=== PATIENT | male | born 1955 | race Caucasian/White ===

== ENCOUNTER 2019-11-02 15:42 | Inpatient (IN) | payer OTHER ==
[~2019-11-02] VITALS: Ht 172.7 cm; Wt 47.0 kg
[2019-11-02 15:49] VITALS: BP 77/30
[2019-11-02] MEDS ORDERED: MORPHINE SULFATE 10 MG/ML VIAL. IM ONE (16:15)
[2019-11-02] MEDS ORDERED: KETOROLAC 30 MG/ML VIAL. IVP ONE (16:30)
[2019-11-02] MEDS ORDERED: oxyCODONE ORAL SOLUTION 5 MG/5 ML SOLUTION PEG PRN (16:30)
[2019-11-02] MEDS: IV NORMAL SALINE 1000ML BAG 1,000 ML IV SCH (16:50)
[2019-11-02] MEDS: fentaNYL PF VIAL 100 MCG/2 ML VIAL IVP PRN ×2 (16:59→22:41)
[2019-11-02 19:00] VITALS: BP 90/52
[2019-11-02] MEDS: GABAPENTIN 250 MG/5 ML ORAL SOLUTION. PEG SCH (21:00)
[2019-11-03] MEDS: METHADONE 5 MG/5 ML SOLUTION. PEG PRN ×2 (00:33→07:54)
[2019-11-03] MEDS: IV NORMAL SALINE 1000ML BAG 1,000 ML IV SCH ×3 (03:02→23:28)
[2019-11-03] MEDS: fentaNYL PF VIAL 100 MCG/2 ML VIAL IVP PRN ×5 (06:00→20:51)
[2019-11-03] MEDS: GABAPENTIN 250 MG/5 ML ORAL SOLUTION. PEG SCH ×3 (07:54→20:51)
[2019-11-03 08:00] VITALS: BP 90/52
--- NOTE | 2019-11-03 13:25 | NUR ---
SW following. Spoke with RN and reviewed chart. Pt from home with son and hospice from [facility], , (fax). Pt currently admitted GIP for pain management. Pt has a port-a-cath and PEG. MARINA coordinated care with fig caprifier Vilma and hospice MARINA Plasencia. Pt wants LTC placement. MARINA contacted [facility] to request he reach out to pt's dtr Analisa ([phone]) to file a Medicaid application. Spoke with pt and pt's dtr who are agreeable to this SW attempting LTC placement Medicaid pending with hospice upon discharge. Pt can return home when stable if placement has not been found. MARINA phoned and faxed initial referral to [facility], , (fax) per approval from pt and pt's dtr. MARINA to continue following. Addendum: 11/03/19 at 1735 by ADARSH GRAY Patient Choice of Vendor Form completed.
--- NOTE | 2019-11-03 15:05 | NUR ---
Wound Care Alba RN stated pt is on comfort care only so no wound care needed
[2019-11-03] MEDS ORDERED: POLYETHYLENE GLYCOL 3350 17 GM PACKET. PEG PRN (17:15)
--- NOTE | 2019-11-03 19:06 | HP ---
ADMIT DATE: 11/02/2019 CHIEF COMPLAINT: Oral cancer. HISTORY OF PRESENT ILLNESS: The patient is a pleasant 64-year-old male who has oral cancer. He has a very large hole in his left lower jaw. He also has a PEG tube that has been plugging off and sometimes even almost falling out. He also has a right chest wall Port-A-Cath. Basically, he is failing to thrive at home, but family is having problems managing him. They would like him to go to a custodial, but the pain management has been a huge issue. We have admitted the patient and we are going to try to arrange custodial with hospice. PAST MEDICAL HISTORY: Oral cancer. ALLERGIES: None. FAMILY HISTORY: Diabetes. 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 Does not drink, smoke or take drugs currently, although I think he used to smoke. MEDICATIONS: Reviewed, please refer to the MRAD. REVIEW OF SYSTEMS: Unable to obtain. The patient really cannot talk. PHYSICAL EXAMINATION: VITALS: Within normal limits and are stable. GENERAL: No apparent distress. Alert and oriented. HEENT: He has a very large hole in the left lower jaw. It is about 10 x 8 cm across. We can see some hardware, appears to be titanium in the jaw. I think he probably had a jaw reconstruction. NECK: Supple, no JVD, no thyromegaly was noted. LUNGS: Clear to auscultation in all lung dao without rhonchi or wheezing. HEART: RRR, S1, S2 present. Peripheral pulses intact, no obvious murmurs were noted. GASTROINTESTINAL: His abdomen is very thin. He does have a PEG tube in place. It is very loose in the whole. We redressed it. CHEST: He has got a right Port-A-Cath in the upper right chest wall. EXTREMITIES: Without any cyanosis, clubbing, or edema. Pedal pulses intact, Homans sign is negative. NEUROLOGIC: He is alert, but can barely speak because of his jaw. PSYCHIATRIC: He is a little anxious. SKIN: No ulcerations or rashes, good skin turgor, no jaundice. VASCULAR: Good capillary refill, neurovascular bundle appears to be intact. ASSESSMENT AND PLAN: Failure to thrive with severe progression of disease with oral cancer that has eroded into the jaw and intractable pain and severe malnutrition. The patient has been admitted. We are going to try to get his pain under control, p.r.n., fentanyl through his port. Myself and the nurses redressed his abdominal wall PEG and his left jaw wound. We will try to resume home meds, deep venous thrombosis prophylaxis. I spoke with case management. We are going to try to get him to a custodial. Prognosis is terminal. ELIZABETH RICCI DO DR: KENYETTA/cecilio JOB#: [id number] / [id number]
[2019-11-03 20:14] VITALS: BP 113/46
[2019-11-03] MEDS: METHADONE 5 MG/5 ML SOLUTION. PEG SCH (20:52)
[2019-11-04] MEDS: fentaNYL PF VIAL 100 MCG/2 ML VIAL IVP PRN ×9 (01:42→22:36)
[2019-11-04 08:00] VITALS: BP 93/43
[2019-11-04] MEDS: IV NORMAL SALINE 1000ML BAG 1,000 ML IV SCH ×2 (09:49→20:05)
[2019-11-04] MEDS: GABAPENTIN 250 MG/5 ML ORAL SOLUTION. PEG SCH ×3 (10:17→22:38)
[2019-11-04] MEDS: METHADONE 5 MG/5 ML SOLUTION. PEG SCH ×2 (10:17→22:37)
--- NOTE | 2019-11-04 11:26 | PDOC ---
[employer] PROGRESS NOTE Chief Complaint Chief Complaint In house hospice Pain control History of Present Illness History of Present Illness 11/04/19 Patient seen and examined Discussed with RN Discussed care with patient's sister Pain not under control so methadone dose was increased to 20 mg BID Vitals/I&O Vitals/I&O: Vital Signs Date Time Temp Pulse Resp B/P (MAP) Pulse Ox O2 Delivery O2 Flow Rate FiO2 11/04/19 10:31 Room Air 11/04/19 08:00 96.9 54 18 93/43 (60) 96 96.9 I & O 11/03/19 11/03/19 11/04/19 15:00 23:00 07:00 Intake Total 0 ml 0 ml 560 ml Output Total 400 ml 450 ml Balance 0 ml -400 ml 110 ml Physical Exam General: Alert, Cooperative Heart: Regular rate, Normal S1, Normal S2 Lungs: Clear Abdomen: Other (PEG tube in place) Extremities: Normal pulses Skin: Other Assessment and Plan Assessmemt and Plan Assessment: Failure to thrive with severe progression of disease with oral cancer that has eroded into the jaw and intractable pain and severe malnutrition. The patient has been admitted. We are going to try to get his pain under control, p.r.n., fentanyl through his port. Plan: Home meds DVT prophylaxis Pain management Wound care Awaiting placement in hospice Comment Review of Relevant I have reviewed the following items earl (where applicable) has been applied. Medications: Current Medications Medications (Trade) Dose Ordered Sig/Christopher Route PRN Reason Start Time Stop Time Status Last Admin Dose Admin Methadone HCl (Dolophine) 20 mg BID PEG 11/03/19 21:00 11/04/19 10:17 Justicifation of Admission Dx: Justifications for Admission: Justification of Admission Dx: Yes ELIZABETH RICCI III DO Nov 04, 2019 11:26
--- NOTE | 2019-11-04 11:36 | SNU/HH DC ---
DISCHARGE ORDERS DISCHARGE INFORMATION: CONDITION ON DISCHARGE: Stable CODE STATUS: Code Status: Full ALF: SNF STAY <30 DAYS: No HOSPICE: HOSPICE: Yes HOSPICE EVAL & TREAT: Yes LTAC: ADMIT TO LTAC: No POST DISCHARGE ORDERS: ACTIVITY ORDERS: Bedrest today DIET AFTER DISCHARGE: ELIZABETH MONTENEGRO III DO Nov 04, 2019 11:36
[2019-11-04] MEDS: DEXAMETHASONE 4 MG TABLET PEG SCH (14:09)
--- NOTE | 2019-11-04 15:03 | NUR ---
SW following. Spoke with RN and reviewed chart. Pt from home with hospice. MARINA coordinated care with Erinn GRAY and Vilma MORENO from [facility]. Pt remains on GIP for pain management. Pt to discharge home with son or to a LTC facility Medicaid pending with hospice if accepted prior to discharge. Spoke with dtopal Hauser ([phone]) and Jossie from [facility] and they are working on getting a Medicaid application completed. MARINA requested a copy of the application so that it can be sent to facilities to help with placement. MARINA phoned and faxed referrals for LTC to [facility], , (fax), [email or web address], , (fax), [facility], , (fax), and [facility], , (fax). Pt is COVID negative. Pt on room air. MARINA put pt on potential weekend discharge list. Addendum: 11/04/19 at 1509 by ADARSH GRAY Pt denied at [facility] but [facility] is actively looking at this patient for potential admission into LTC Medicaid pending with hospice.
[2019-11-04] MEDS ORDERED: CHERRY PEG SCH ×2 (16:00→16:15)
[2019-11-04] MEDS ORDERED: KETAMINE PEG SCH ×2 (16:00→16:15)
[2019-11-04] MEDS ORDERED: KETAMINE HCL IN NACL, ISO-OSM 50 MG/5 ML SYRINGE ONE (17:00)
[2019-11-04] MEDS: KETAMINE PEG SCH ×3 (17:43→23:00)
[2019-11-04] MEDS: CHERRY PEG SCH ×3 (17:43→23:00)
[2019-11-04 19:00] VITALS: BP 90/47
[2019-11-04 23:00] VITALS: BP 94/50
[2019-11-05] MEDS: CHERRY PEG SCH ×8 (02:00→22:58)
[2019-11-05] MEDS: KETAMINE PEG SCH ×8 (02:00→22:58)
[2019-11-05] MEDS: fentaNYL PF VIAL 100 MCG/2 ML VIAL IVP PRN ×3 (02:01→14:40)
[2019-11-05] MEDS: IV NORMAL SALINE 1000ML BAG 1,000 ML IV SCH ×4 (05:01→23:37)
[2019-11-05] MEDS: DEXAMETHASONE 4 MG TABLET PEG SCH (08:13)
[2019-11-05] MEDS: GABAPENTIN 250 MG/5 ML ORAL SOLUTION. PEG SCH ×3 (08:13→20:12)
[2019-11-05] MEDS: METHADONE 5 MG/5 ML SOLUTION. PEG SCH ×2 (08:14→20:16)
[2019-11-05 09:31] VITALS: BP 105/48
--- NOTE | 2019-11-05 11:47 | PDOC ---
[employer] PROGRESS NOTE Chief Complaint Chief Complaint In house hospice Pain control History of Present Illness History of Present Illness 11/05/19 Patient seen and examined Discussed with RN Chart reviewed Patient said Ketamine helped with pain Covid (-) 11/04/19 Patient seen and examined Discussed with RN Discussed care with patient's sister Pain not under control so methadone dose was increased to 20 mg BID Vitals/I&O Vitals/I&O: Vital Signs Date Time Temp Pulse Resp B/P (MAP) Pulse Ox O2 Delivery O2 Flow Rate FiO2 11/05/19 09:31 98.4 71 16 105/48 (67) 88 Room Air 98.4 I & O 11/04/19 11/04/19 11/05/19 15:00 23:00 07:00 Intake Total 824 ml 802 ml 120 ml Output Total 150 ml 400 ml 200 ml Balance 674 ml 402 ml -80 ml Physical Exam General: Alert, Cooperative Heart: Regular rate, Normal S1, Normal S2 Lungs: Clear Abdomen: Other (PEG tube in place) Extremities: Normal pulses Skin: Other Labs Labs: Laboratory Tests Test 11/05/19 09:26 Glucose (Fingerstick) 114 mg/dL (70-99) Assessment and Plan Assessmemt and Plan Assessment: In house hospice Pain control Covid (-) Patient is responding very well to Ketamine Plan: Continue current comfort meds Wound care DVT prophylaxis Awaiting discharge to hospice Comment Review of Relevant I have reviewed the following items earl (where applicable) has been applied. Medications: Current Medications Medications (Trade) Dose Ordered Sig/Christopher Route PRN Reason Start Time Stop Time Status Last Admin Dose Admin Dexamethasone (Decadron) 4 mg DAILYWBKFT PEG 11/04/19 12:15 11/05/19 08:13 Non-Formulary Medication 1 ea Q3H PEG 11/04/19 17:00 11/05/19 10:40 Justicifation of Admission Dx: Justifications for Admission: Justification of Admission Dx: Yes ELIZABETH RICCI III DO Nov 05, 2019 11:47
[2019-11-05 18:43] VITALS: BP 103/50
--- NOTE | 2019-11-05 20:30 | NUR ---
Pt. resting comfortably currently. Meds given approximately 30 minutes ago. Refused tube feeding tonight as well as wanting to be turned currently. Will continue to monitor.
[2019-11-06] MEDS: CHERRY PEG SCH ×8 (02:01→22:56)
[2019-11-06] MEDS: KETAMINE PEG SCH ×8 (02:01→22:56)
[2019-11-06] MEDS: fentaNYL PF VIAL 100 MCG/2 ML VIAL IVP PRN ×6 (03:27→21:14)
[2019-11-06 07:59] VITALS: BP 121/76
[2019-11-06] MEDS: DEXAMETHASONE 4 MG TABLET PEG SCH (08:54)
[2019-11-06] MEDS: GABAPENTIN 250 MG/5 ML ORAL SOLUTION. PEG SCH ×3 (08:54→20:19)
[2019-11-06] MEDS: METHADONE 5 MG/5 ML SOLUTION. PEG SCH ×2 (08:55→20:27)
[2019-11-06] MEDS ORDERED: KETAMINE HCL IN NACL, ISO-OSM 50 MG/5 ML SYRINGE ONE (09:00)
[2019-11-06] MEDS: IV NORMAL SALINE 1000ML BAG 1,000 ML IV SCH (10:30)
[2019-11-06] MEDS ORDERED: SCOPOLAMINE 1.5MG PATCH. TD SCH (12:00)
--- NOTE | 2019-11-06 12:36 | PDOC ---
[employer] PROGRESS NOTE Chief Complaint Chief Complaint In house hospice Pain control History of Present Illness History of Present Illness 11/06/19 Patient seen and examined Chart reviewed Discussed with RN Patient had some secretions and were audible when he breathed 11/05/19 Patient seen and examined Discussed with RN Chart reviewed Patient said Ketamine helped with pain Covid (-) 11/04/19 Patient seen and examined Discussed with RN Discussed care with patient's sister Pain not under control so methadone dose was increased to 20 mg BID Vitals/I&O Vitals/I&O: Vital Signs Date Time Temp Pulse Resp B/P (MAP) Pulse Ox O2 Delivery O2 Flow Rate FiO2 11/06/19 12:04 Room Air 11/06/19 07:59 97.6 92 18 121/76 (91) 64 97.6 I & O 11/05/19 11/05/19 11/06/19 15:00 23:00 07:00 Intake Total 230 ml 430 ml 1100 ml Output Total 450 ml 200 ml Balance 230 ml -20 ml 900 ml Physical Exam General: Alert, Cooperative Heart: Regular rate, Normal S1, Normal S2 Lungs: Clear Abdomen: Other (PEG tube in place) Extremities: Normal pulses Skin: Other Assessment and Plan Assessmemt and Plan Assessment: In house hospice Pain control Patient had some secretions today Plan: Continue current care Comfort meds Comfort care DVT prophylaxis Wound care Scopolamine patch to dry secretions Hope to discharge to long time care Comment Review of Relevant I have reviewed the following items earl (where applicable) has been applied. Medications: Current Medications Medications (Trade) Dose Ordered Sig/Christopher Route PRN Reason Start Time Stop Time Status Last Admin Dose Admin Scopolamine (Transderm-Scop) 1 patch Q3DAYS TD 11/06/19 12:00 11/06/19 12:29 Justicifation of Admission Dx: Justifications for Admission: Justification of Admission Dx: Yes ELIZABETH RICCI III DO Nov 06, 2019 12:36
--- NOTE | 2019-11-06 15:53 | NUR ---
pt comfort care only, inpatient hospice, refused to have wound photographs taken at this time due to the pain.
[2019-11-06 19:00] VITALS: BP 87/56
--- NOTE | 2019-11-06 21:00 | NUR ---
Pt. refused any jevity, wound pictures and central line dressing change at this time.
[2019-11-07] MEDS: CHERRY PEG SCH ×8 (02:00→23:15)
[2019-11-07] MEDS: KETAMINE PEG SCH ×8 (02:00→23:15)
[2019-11-07 08:00] VITALS: BP 98/65
[2019-11-07] MEDS: DEXAMETHASONE 4 MG TABLET PEG SCH (08:24)
[2019-11-07] MEDS: GABAPENTIN 250 MG/5 ML ORAL SOLUTION. PEG SCH ×3 (08:24→20:22)
[2019-11-07] MEDS: fentaNYL PF VIAL 100 MCG/2 ML VIAL IVP PRN ×3 (08:24→17:03)
[2019-11-07] MEDS: METHADONE 5 MG/5 ML SOLUTION. PEG SCH ×2 (08:25→20:21)
--- NOTE | 2019-11-07 09:28 | PDOC ---
PROGRESS NOTES Chief Complaint Chief Complaint impression In house hospice Pain control 64-year-old male who has oral cancer. He has a very large hole in his left lower jaw. He also has a PEG tube that has been plugging off and sometimes even almost falling out. He also has a right chest wall Port-A-Cath. Basically, he is failing to thrive at home, but family is having problems managing him. They would like him to go to a senior care, but the pain management has been a huge issue. We have admitted the patient and we are going to try to arrange senior care with hospice. History of Present Illness History of Present Illness 11/06 Patient seen and examined Chart reviewed Discussed with RN Patient had some secretions and were audible when he breathed 11/05/19 Patient seen and examined Discussed with RN Chart reviewed Patient said Ketamine helped with pain Covid (-) 11/04/19 Patient seen and examined Discussed with RN Discussed care with patient's sister Pain not under control so methadone dose was increased to 20 mg BID Vitals Vitals Vital Signs Date Time Temp Pulse Resp B/P (MAP) Pulse Ox O2 Delivery O2 Flow Rate FiO2 11/07/19 09:10 Room Air 11/06/19 21:39 16 11/06/19 19:00 98.5 111 87/56 (66) 67 98.5 Physical Exam General: Alert, Cooperative Heart: Regular rate, Normal S1, Normal S2 Lungs: Clear Abdomen: Soft, Other (PEG tube in place) Extremities: Normal pulses Skin: Other Comment Review of Relevant I have reviewed the following items earl (where applicable) has been applied. Medications Current Medications Morphine Sulfate (Morphine Sulfate) 10 mg 1X ONCE IM ; Start 11/02/19 at 16:15; Stop 11/02/19 at 16:24; Status DC Gabapentin (Neurontin Oral Soln) 500 mg [id number] PEG Last administered on 11/07/19at 08:24; Start 11/02/19 at 21:00 Methadone HCl (Dolophine) 10 mg PRN Q6HRS PRN PEG PAIN severe Last administered on 11/03/19at 07:54; Start 11/02/19 at 16:15; Stop 11/03/19 at 17:18; Status DC Oxycodone HCl (oxyCODONE ORAL SOLUTION) 20 mg PRN Q4HRS PRN PEG PAIN/air hunger mild to mod Last administered on 11/03/19at 10:52; Start 11/02/19 at 16:30; Stop 11/03/19 at 17:18; Status DC Fentanyl Citrate (Fentanyl 2ml Vial) 100 mcg PRN Q2HR PRN IVP PAIN Last administered on 11/07/19at 08:24; Start 11/02/19 at 16:30 Ketorolac Tromethamine (Toradol 30mg Vial) 30 mg 1X ONCE IVP Last administered on 11/02/19at 16:49; Start 11/02/19 at 16:30; Stop 11/02/19 at 16:31; Status DC Sodium Chloride 1,000 ml @ 100 mls/hr Q10H IV Last administered on 11/06/19at 10:30; Start 11/02/19 at 16:30; Stop 11/06/19 at 13:32; Status DC Methadone HCl (Dolophine) 20 mg BID PEG Last administered on 11/07/19at 08:25; Start 11/03/19 at 21:00 Polyethylene Glycol (miraLAX PACKET) 17 gm PRN DAILY PRN PEG CONSTIPATION; Start 11/03/19 at 17:15 Dexamethasone (Decadron) 4 mg DAILYWBKFT PEG Last administered on 11/07/19at 08:24; Start 11/04/19 at 12:15 Non-Formulary Medication 1 ea Q3H PEG ; Start 11/04/19 at 16:00; Status Cancel Non-Formulary Medication 1 ea Q3H PEG ; Start 11/04/19 at 16:00; Status Cancel Non-Formulary Medication 1 ea Q3H PEG ; Start 11/04/19 at 16:15; Status Cancel Non-Formulary Medication 1 ea Q3H PEG Last administered on 11/07/19at 08:25; Start 11/04/19 at 17:00 Ketamine HCl (Ketamine) 50 mg STK-MED ONCE .ROUTE ; Start 11/04/19 at 17:00; Stop 11/04/19 at 16:47; Status DC Scopolamine (Transderm-Scop) 1 patch Q3DAYS TD Last administered on 11/06/19at 12:29; Start 11/06/19 at 12:00 Vitals/I & O Vital Sign - Last 24 Hours 811/06/19 11/06/19 11/06/19 09:58 11:00 12:04 13:09 O2 Delivery Room Air Room Air Room Air Room Air 11/06/19 11/06/19 11/06/19 11/06/19 13:39 16:12 16:42 19:00 O2 Delivery Room Air Room Air Room Air Room Air 11/06/19 11/06/19 11/06/19 11/06/19 19:00 19:00 19:30 20:27 Temp 98.5 98.5 Pulse 111 Resp 20 20 16 22 B/P (MAP) 87/56 (66) Pulse Ox 67 O2 Delivery Room Air Room Air Room Air Room Air 11/06/19 11/06/19 11/06/19 11/07/19 21:14 21:25 21:39 08:24 Resp 15 16 16 O2 Delivery Room Air Room Air Room Air Room Air 11/07/19 11/07/19 11/07/19 08:25 09:10 09:10 O2 Delivery Room Air Room Air Room Air Intake and Output 11/06/19 11/06/19 11/07/19 15:00 23:00 07:00 Intake Total 100 ml 520 ml 0 ml Output Total 350 ml 250 ml Balance -250 ml 520 ml -250 ml Nutrition Consultation Dietary Evaluation: Recommendations by RD: Dietary education by RD Comments: Jevity 1.5 bolus 237 ml QID 175 ml water flush with each bolus Expected Outcomes/Goals: comfort measures Malnutrition Findings: Muscle Mass (Severe): Severe Depletion Body Fat Depletion (Non Severe: Mod to Severe Weight Status: Underweight Justicifation of Admission Dx: Justifications for Admission: Justification of Admission Dx: Yes EMILIANA NI MD Nov 07, 2019 09:28
--- NOTE | 2019-11-07 13:34 | NUR ---
SW following. Spoke with RN and reviewed chart. Pt continues to meet GIP criteria. MARINA coordinated care with MARINA Plasencia from [facility], , (fax). MARINA faxed Erinn completed Medicaid application from [employer] for LTC. Pt will likely discharge to [facility] Medicaid pending with hospice if pt does not pass on GIP. SW to continue following for support and discharge planning.
[2019-11-07 20:00] VITALS: BP 88/61
[2019-11-08] MEDS: CHERRY PEG SCH ×3 (02:01→08:39)
[2019-11-08] MEDS: KETAMINE PEG SCH ×3 (02:01→08:39)
[2019-11-08 07:36] VITALS: BP 89/49
[2019-11-08] MEDS: DEXAMETHASONE 4 MG TABLET PEG SCH (08:40)
[2019-11-08] MEDS: METHADONE 5 MG/5 ML SOLUTION. PEG SCH (08:40)
[2019-11-08] MEDS: GABAPENTIN 250 MG/5 ML ORAL SOLUTION. PEG SCH (08:40)
--- NOTE | 2019-11-08 11:38 | PDOC ---
PROGRESS NOTES Date of Service: DATE: 11/08/19 TIME: 11:37 Chief Complaint Chief Complaint DISCHARGE DX In house hospice Pain control 64-year-old male who has oral cancer. He has a very large hole in his left lower jaw. He also has a PEG tube that has been plugging off and sometimes even almost falling out. He also has a right chest wall Port-A-Cath. Basically, he is failing to thrive at home, but family is having problems managing him. They would like him to go to a fdc, but the pain management has been a huge issue. We have admitted the patient 11/07 History of Present Illness History of Present Illness 11/06 Patient seen and examined Chart reviewed Discussed with RN Patient had some secretions and were audible when he breathed 11/05/19 Patient seen and examined Discussed with RN Chart reviewed Patient said Ketamine helped with pain Covid (-) 11/04/19 Patient seen and examined Discussed with RN Discussed care with patient's sister Pain not under control so methadone dose was increased to 20 mg BID Vitals Vitals Vital Signs Date Time Temp Pulse Resp B/P (MAP) Pulse Ox O2 Delivery O2 Flow Rate FiO2 11/08/19 09:40 Room Air 11/08/19 07:36 97.2 116 15 89/49 (62) 90 97.2 Physical Exam Physical Exam General: Alert Skin: Other Comment Review of Relevant I have reviewed the following items earl (where applicable) has been applied. Medications Current Medications Morphine Sulfate (Morphine Sulfate) 10 mg 1X ONCE IM ; Start 11/02/19 at 16:15; Stop 11/02/19 at 16:24; Status DC Gabapentin (Neurontin Oral Soln) 500 mg [id number] PEG Last administered on 11/08/19at 08:40; Start 11/02/19 at 21:00 Methadone HCl (Dolophine) 10 mg PRN Q6HRS PRN PEG PAIN severe Last administered on 11/03/19at 07:54; Start 11/02/19 at 16:15; Stop 11/03/19 at 17:18; Status DC Oxycodone HCl (oxyCODONE ORAL SOLUTION) 20 mg PRN Q4HRS PRN PEG PAIN/air hunger mild to mod Last administered on 11/03/19at 10:52; Start 11/02/19 at 16:30; Stop 11/03/19 at 17:18; Status DC Fentanyl Citrate (Fentanyl 2ml Vial) 100 mcg PRN Q2HR PRN IVP PAIN Last administered on 11/07/19at 17:03; Start 11/02/19 at 16:30 Ketorolac Tromethamine (Toradol 30mg Vial) 30 mg 1X ONCE IVP Last administered on 11/02/19at 16:49; Start 11/02/19 at 16:30; Stop 11/02/19 at 16:31; Status DC Sodium Chloride 1,000 ml @ 100 mls/hr Q10H IV Last administered on 11/06/19at 10:30; Start 11/02/19 at 16:30; Stop 11/06/19 at 13:32; Status DC Methadone HCl (Dolophine) 20 mg BID PEG Last administered on 11/08/19at 08:40; Start 11/03/19 at 21:00 Polyethylene Glycol (miraLAX PACKET) 17 gm PRN DAILY PRN PEG CONSTIPATION; Start 11/03/19 at 17:15 Dexamethasone (Decadron) 4 mg DAILYWBKFT PEG Last administered on 11/08/19at 08:40; Start 11/04/19 at 12:15 Non-Formulary Medication 1 ea Q3H PEG ; Start 11/04/19 at 16:00; Status Cancel Non-Formulary Medication 1 ea Q3H PEG ; Start 11/04/19 at 16:00; Status Cancel Non-Formulary Medication 1 ea Q3H PEG ; Start 11/04/19 at 16:15; Status Cancel Non-Formulary Medication 1 ea Q3H PEG Last administered on 11/08/19at 08:39; Start 11/04/19 at 17:00 Ketamine HCl (Ketamine) 50 mg STK-MED ONCE .ROUTE ; Start 11/04/19 at 17:00; Stop 11/04/19 at 16:47; Status DC Scopolamine (Transderm-Scop) 1 patch Q3DAYS TD Last administered on 11/06/19at 12:29; Start 11/06/19 at 12:00 Ketamine HCl (Ketamine) 50 mg STK-MED ONCE .ROUTE ; Start 11/06/19 at 09:00; Stop 11/07/19 at 09:57; Status DC Vitals/I & O Vital Sign - Last 24 Hours 11/07/19 11/07/19 11/07/19 11/07/19 14:52 15:53 17:03 17:37 O2 Delivery Room Air Room Air Room Air Room Air 11/07/19 11/07/19 11/07/19 11/07/19 19:00 20:00 20:21 21:15 Temp 98.5 98.5 Pulse 103 Resp 24 15 20 B/P (MAP) 88/61 (70) Pulse Ox 98 O2 Delivery Room Air Room Air Room Air 11/08/19 11/08/19 11/08/19 11/08/19 07:36 07:45 08:40 09:40 Temp 97.2 97.2 Pulse 116 Resp 15 B/P (MAP) 89/49 (62) Pulse Ox 90 O2 Delivery Room Air Room Air Room Air Room Air Intake and Output 11/07/19 11/07/19 11/08/19 15:00 23:00 07:00 Intake Total 30 ml 60 ml 60 ml Output Total 150 ml Balance -120 ml 60 ml 60 ml Nutrition Consultation Dietary Evaluation: Recommendations by RD: Dietary education by RD Comments: Jevity 1.5 bolus 237 ml QID 175 ml water flush with each bolus Expected Outcomes/Goals: comfort measures Malnutrition Findings: Muscle Mass (Severe): Severe Depletion Body Fat Depletion (Non Severe: Mod to Severe Weight Status: Underweight Justicifation of Admission Dx: Justifications for Admission: Justification of Admission Dx: Yes EMILIANA NI MD Nov 08, 2019 11:38
--- NOTE | 2019-11-08 12:37 | PDOC3 ---
Discharge Summary Date of Admission: Nov 03, 2019 Date of Discharge: Nov 08, 2019 Follow-Up: Other () Admitting Diagnosis comment: DISCHARGE DX In house hospice Pain control 64-year-old male who has oral cancer. He has a very large hole in his left lower jaw. He also has a PEG tube that has been plugging off and sometimes even almost falling out. He also has a right chest wall Port-A-Cath. Basically, he is failing to thrive at home, but family is having problems managing him. They would like him to go to a [facility], but the pain management has been a huge issue. We have admitted the patient 11/07 History of Present Illness History of Present Illness 11/06 Patient seen and examined Chart reviewed Discussed with RN Patient had some secretions and were audible when he breathed 11/05/19 Patient seen and examined Discussed with RN Chart reviewed Patient said Ketamine helped with pain Covid (-) 11/04/19 Patient seen and examined Discussed with RN Discussed care with patient's sister Pain not under control so methadone dose was increased to 20 mg BID Vitals Vitals Vital Signs Date Time Temp Pulse Resp B/P (MAP) Pulse Ox O2 Delivery O2 Flow Rate FiO2 11/08/19 09:40 Room Air 11/08/19 07:36 97.2 116 15 89/49 (62) 90 97.2 Physical Exam Physical Exam General: Alert Skin: Other Brief Hospital Course Mr. Hernandez is a 64 old [sex] who presented with [ END STAGE ORAL CANCER] CONDITION AT DISCHARGE: / Discharge Medications Current Medications Morphine Sulfate (Morphine Sulfate) 10 mg 1X ONCE IM ; Start 11/02/19 at 16:15; Stop 11/02/19 at 16:24; Status DC Gabapentin (Neurontin Oral Soln) 500 mg [id number] PEG Last administered on 11/08/19at 08:40; Start 11/02/19 at 21:00 Methadone HCl (Dolophine) 10 mg PRN Q6HRS PRN PEG PAIN severe Last administered on 11/03/19at 07:54; Start 11/02/19 at 16:15; Stop 11/03/19 at 17:18; Status DC Oxycodone HCl (oxyCODONE ORAL SOLUTION) 20 mg PRN Q4HRS PRN PEG PAIN/air hunger mild to mod Last administered on 11/03/19at 10:52; Start 11/02/19 at 16:30; Stop 11/03/19 at 17:18; Status DC Fentanyl Citrate (Fentanyl 2ml Vial) 100 mcg PRN Q2HR PRN IVP PAIN Last administered on 11/07/19at 17:03; Start 11/02/19 at 16:30 Ketorolac Tromethamine (Toradol 30mg Vial) 30 mg 1X ONCE IVP Last administered on 11/02/19at 16:49; Start 11/02/19 at 16:30; Stop 11/02/19 at 16:31; Status DC Sodium Chloride 1,000 ml @ 100 mls/hr Q10H IV Last administered on 11/06/19at 10:30; Start 11/02/19 at 16:30; Stop 11/06/19 at 13:32; Status DC Methadone HCl (Dolophine) 20 mg BID PEG Last administered on 11/08/19at 08:40; Start 11/03/19 at 21:00 Polyethylene Glycol (miraLAX PACKET) 17 gm PRN DAILY PRN PEG CONSTIPATION; Start 11/03/19 at 17:15 Dexamethasone (Decadron) 4 mg [id number] PEG Last administered on 11/08/19at 08:40; Start 11/04/19 at 12:15 Non-Formulary Medication 1 ea Q3H PEG ; Start 11/04/19 at 16:00; Status Cancel Non-Formulary Medication 1 ea Q3H PEG ; Start 11/04/19 at 16:00; Status Cancel Non-Formulary Medication 1 ea Q3H PEG ; Start 11/04/19 at 16:15; Status Cancel Non-Formulary Medication 1 ea Q3H PEG Last administered on 11/08/19at 08:39; Start 11/04/19 at 17:00 Ketamine HCl (Ketamine) 50 mg STK-MED ONCE .ROUTE ; Start 11/04/19 at 17:00; Stop 11/04/19 at 16:47; Status DC Scopolamine (Transderm-Scop) 1 patch Q3DAYS TD Last administered on 11/06/19at 12:29; Start 11/06/19 at 12:00 Ketamine HCl (Ketamine) 50 mg STK-MED ONCE .ROUTE ; Start 11/06/19 at 09:00; Stop 11/07/19 at 09:57; Status DC Vital Signs Vital Signs Date Time Temp Pulse Resp B/P (MAP) Pulse Ox O2 Delivery O2 Flow Rate FiO2 11/08/19 09:40 Room Air 11/08/19 07:36 97.2 116 15 89/49 (62) 90 97.2 Allergies Allergies Coded Allergies Type Severity Reaction Last Updated Verified morphine Allergy Mild Anxiety 11/02/19 Yes Disposition/Orders: Justicifation of Admission Dx: Justifications for Admission: Justification of Admission Dx: Yes EMILIANA NI MD Nov 08, 2019 12:37
--- NOTE | 2019-11-08 13:52 | NUR ---
SW following. Spoke with RN. Pt this morning and [facility] was notified. Family grieving appropriately. No further SW needs at this time.
--- NOTE | 2019-11-08 14:00 | NUR ---
At 0917 patient was independently assessed by 2 RN's, Elidia Tellez, RN and Marvin Hawley RN. At 0920 patient was pronounced . Yasmin, sister at the bedside. Dr. Lim was paged, [facility] Jonespard was called. [facility] called Analisa, lorena daughter. Vilma from [facility] came in and cleaned patient up, de-accessed patients port, removed potts catheter and made patient presentable for patient. When family finished saying their goodbyes, patient was tagged and placed in body bag and was taken to the morgue around 1350.
== END 2019-11-08 14:24 | disposition expired | DRG 947 ==
LOC: 5 NORTH 15:42
PROVIDERS: ADMIT Internal Medicine; ATTEND Internal Medicine
DX: G89.3 Neoplasm related pain (acute) (chronic) (principal); E43 Unspecified severe protein-calorie malnutrition; Z68.1 Body mass index [BMI] 19.9 or less, adult; R62.7 Adult failure to thrive; C06.9 Malignant neoplasm of mouth, unspecified; Z88.5 Allergy status to narcotic agent; Z93.1 Gastrostomy status; Z87.891 Personal history of nicotine dependence; Z85.819 Personal history of malignant neoplasm of unspecified site of lip, oral cavity, and pharynx; Z83.3 Family history of diabetes mellitus
CPT/HCPCS: 82962; J1885; J3010; J7030; G0378; U0003-CS